=== PATIENT | female | born 2000 | race Caucasian/White ===

== ENCOUNTER 2024-02-03 09:03 | Day surgery (SDC) | payer BC, OTHER ==
[~2024-02-03 09:03] MED LIST: Acetaminophen 500 MG TAB PO PRN; Ferumoxytol (ERSD) 510 MG in 0.9 % Sodium Chloride 150 ML IVPB SCH
[2024-02-03] MEDS ORDERED: Acetaminophen 500 MG TAB ONE (09:16)
[2024-02-03] MEDS: Acetaminophen 500 MG TAB PO SCH (09:20)
[2024-02-03] MEDS: Ferumoxytol (NON ERSD) 510 MG in 0.9 % Sodium Chloride 150 ML IVPB SCH (09:52)
[2024-02-03 12:39] VITALS: BP 125/75; TEMP 98.1
== END 2024-02-03 12:39 | disposition home or self-care (01) ==
LOC: ONC/OP 09:03
PROVIDERS: ATTEND Family Medicine
DX: O99.019 Anemia complicating pregnancy, unspecified trimester (principal); Z88.0 Allergy status to penicillin; Z3A.00 Weeks of gestation of pregnancy not specified
CPT/HCPCS: 96365; Q0138